=== PATIENT | female | born 1995 | race Caucasian/White ===

== ENCOUNTER 2025-04-04 04:59 | Emergency (ER) | payer BC, SELFPAY ==
[2025-04-04] VITALS (10 sets, daily range): BP systolic 134–164; BP diastolic 82–102; PULSE 51–84; RESP 16–26; TEMP 36.7–36.9; O2SAT 89–98; BMI 31.1
--- NOTE | 2025-04-04 04:58 | ECG_ITS ---
APPROVED REPORT Exam: Resting ECG HR:63 bpm ECG Measurements Heart Rate 63 AXES NM 132 P 49 QRSd 76 QRS 63 QT 389 T 42 QTc 397 Conclusion SINUS RHYTHM WITH SINUS ARRHYTHMIA NORMAL ECG Electronically signed by : MARIA ODLORES BECKMAN, 04/07/2025 19:57:35
--- NOTE | 2025-04-04 05:02 | CT_ITS ---
PROCEDURE INFORMATION: Exam: CTA Chest With Contrast Exam date and time: 04/04/2025 5:21 AM Age: 29 years old Clinical indication: Other: Labs; Additional info: Hemoptysis, cp, SOA TECHNIQUE: Imaging protocol: Computed tomographic angiography of the chest with contrast. Exam focused on the arteries. 3D rendering (Not supervised by radiologist): MIP and/or 3D reconstructed images were created by the technologist. Radiation optimization: All CT scans at this facility use at least one of these dose optimization techniques: automated exposure control; mA and/or kV adjustment per patient size (includes targeted exams where dose is matched to clinical indication); or iterative reconstruction. Contrast material: ISOVUE; Contrast volume: 70 ml; Contrast route: INTRAVENOUS (IV); COMPARISON: No relevant prior studies available. FINDINGS: Pulmonary arteries: Normal. No pulmonary emboli. Aorta: Unremarkable. No aortic aneurysm. No aortic dissection. Lungs: Patchy ground-glass interstitial disease is noted throughout the lungs with relative peripheral sparing. No dominant dense consolidation is identified. Pleural spaces: There are small bilateral pleural effusion with adjacent atelectasis. Heart: Unremarkable. No cardiomegaly. No pericardial effusion. Coronary arteries: There is no coronary artery calcification. Lymph nodes: Unremarkable. No enlarged lymph nodes. Diaphragm: There is a small hiatal hernia. 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 No acute fracture. Soft tissues: Unremarkable. Study is degraded by motion artifact. IMPRESSION: Somewhat limited study. No evidence for pulmonary embolism. Pneumonia. Small bilateral pleural effusions. Small hiatal hernia.
--- NOTE | 2025-04-04 05:08 | PC.NURSE ---
Resp called for VBG at [id number]
[2025-04-04 05:14] LABS: Lactate Venous 1.2 mmol/L (0.4-2.0); VBG Base Excess -4.8 mmol/L (-2.4-2.3); VBG HCO3 20.3 mmol/L (23-30); VBG Oxygen Saturation 55.7 % (50-70); VBG PH 7.38 mmol/L (7.31-7.41); VBG PO2 33.9 mmol/L (28-40); VBG Total CO2 21.4 mmol/L (23-27)
[2025-04-04 05:18] LABS: Basophils % 0.3 % (0.1-2.0); Eosinophils # 0.1 Kmm3 (0.0-0.4); Eosinophils % 1.1 % (0.1-12.0); Hematocrit 29.3 % (37.0-47.0); Immature Granulocytes # 0.05 10^3uL; Immature Granulocytes % 0.8 %; Lymphocytes # 1.4 K/mm3 (0.7-4.5); Lymphocytes % 21.6 % (10-50); Mean Corpuscular HGB Conc 30.7 g/dL (31.8-35.4); Mean Corpuscular Hemoglobin 24.5 pg (27.0-31.2); Mean Corpuscular Volume 79.6 fl (81-99); Mean Platelet Volume 10.3 fl (7.4-10.4); Monocytes # 0.5 K/mm3 (0.1-1.0); Monocytes % 8.1 % (1.7-9.3); Neutrophils # 4.4 K/mm3 (1.8-7.8); Neutrophils % 68.1 % (37.0-80.0); Nucleated Red Blood Cells # 0 10^3/uL; Nucleated Red Blood Cells % 0 %; Platelet Count 285 K/mm3 (142-424); Red Blood Count 3.68 M/mm3 (4.20-5.40); Red Cell Distribution Width 14.5 % (11.5-17.5); Red Cell Distribution Width-SD 42.2 fL; White Blood Count 6.4 K/mm3 (4.8-10.8)
--- NOTE | 2025-04-04 05:22 | ED_ITS ---
Discharge Plan Disposition Patient Disposition: Xfer Short-Term Hosp Chief Complaint: Shortness of Breath/Dyspnea Clinical Impressions Clinical Impression: hypertension, Elevated troponin, Pleural effusion, Hemoptysis, Ground glass opacity present on imaging of lung Stand Alone Forms Stand Alone Forms: Work/School Release Print Language Print Language: Sami Discharge ED Provider: Domingo Eric Adult HPI <Domingo Eric MD - Last Filed: 04/04/25 07:14> General Chief complaint: Shortness of Breath/Dyspnea Stated complaint: Shortness of breath Time Seen by Provider: 04/04/25 05:00 Mode of Arrival: Ambulatory Source of Information: Patient Description of Symptoms (Recalled from ER Triage Doc. by RN): Patient had c section on sunday; having shortness of breath, upper back pain, and coughing up blood. She is concerned that she has a blood clot. History of Present Illness HPI narrative: 29-year-old female, G1, P1 status post on Sunday at [facility], presents for chest pain back pain cough shortness of breath. She reports small volume hemoptysis, multiple episodes. She denies any other significant past medical history, no history of blood clots. Prior to tonight she was feeling well. She had a due to prolonged labor and development of chorio. She reports that the surgery went well. She denies any fever at home. Related Data Allergies Allergy/AdvReac Type Severity Reaction Status Date / Time No Known Allergies Allergy Verified 04/04/25 06:18 PFSH <Domingo Eric MD - Last Filed: 04/04/25 07:14> [facility] Disclaimer: The information contained in this section may have been updated after the patient was seen, as this information can be updated by other users. Social History (Updated 04/04/25 @ 07:14 by Domingo Eric MD) Smoking Status: Never smoker alcohol intake: never current occupational status: employed Travel in the last 8 weeks?: None <Domingo Eric MD - Last Filed: 04/04/25 07:14> ROS Obtained: Yes All systems reviewed & no additional complaints except as documented Physical Exam <Domingo Eric MD - Last Filed: 04/04/25 07:14> General General appearance: alert and anxious Head Head exam: atraumatic and normocephalic Eye Eye exam: Present normal appearance, PERRL and EOMI ENT ENT exam: Present normal oropharynx and normal external ear exam Neck Neck exam: Present normal inspection and full ROM Chest Chest inspection: Present normal inspection and symmetric chest wall rise; Absent tenderness Respiratory Respiratory exam: Present normal lung sounds bilaterally; Absent respiratory distress Cardiovascular Cardiovascular exam: Present regular rate and normal rhythm Abdominal Exam Abdominal exam: Present soft; Absent distention, tenderness or guarding Extremities Exam Extremities exam: Present normal inspection; Absent edema or joint swelling Back Exam Back exam: Present normal inspection; Absent tenderness Neurological Exam Neurological exam: Present alert and oriented X3; Absent motor sensory deficit Psychiatric Psychiatric exam: Present normal affect and normal mood Skin Skin exam: Present warm, dry and normal color Lymphatic Lymphatic Findings: no adenopathy Medical Decision Making <Domingo Eric MD - Last Filed: 04/04/25 07:14> Medical Records Medical records reviewed: Yes I reviewed the patient's medical records. Screening: Per USPSTF and CDC recommendations, given the prevalence of disease in our region, it is our hospital?s policy to screen for HIV and viral Hepatitis for all patients aged 18 and over and those with ongoing risk factors. Donnell Inquiry Pt receiving controlled substance: No Donnell was queried for this patient: No Vital Signs: 04/04/25 05:00 04/04/25 05:39 04/04/25 06:00 Temperature 98.0 F Temperature Source Oral Pulse Rate 59 L 59 L Pulse Rate [Right Radial] 84 Respiratory Rate 16 16 Blood Pressure 134/82 142/96 H Blood Pressure [Right Arm] 158/102 H Blood Pressure Mean [Right Arm] 120 Blood Pressure Source Automatic Cuff Blood Pressure Source [Right Arm] Automatic Cuff Blood Pressure Position Supine Blood Pressure Position [Right Arm] Supine 02 Sat by Pulse Oximetry 94 L 98 95 Oxygen Delivery Method Room Air Room Air 04/04/25 06:54 04/04/25 07:30 04/04/25 08:01 Temperature Temperature Source Pulse Rate 84 57 L 54 L Pulse Rate [Right Radial] Respiratory Rate 24 26 H Blood Pressure 142/96 H 164/92 H 136/86 Blood Pressure [Right Arm] Blood Pressure Mean [Right Arm] Blood Pressure Source Blood Pressure Source [Right Arm] Blood Pressure Position Blood Pressure Position [Right Arm] 02 Sat by Pulse Oximetry 98 92 L 93 L Oxygen Delivery Method Lab Data Lab results reviewed: Yes I reviewed the patient's lab results. Lab Results 04/04/25 05:01: WBC 6.4, RBC 3.68 L, Hgb 9.0 L, Hct 29.3 L, MCV 79.6 L, MCH 24.5 L, MCHC 30.7 L, RDW 14.5, Plt Count 285, MPV 10.3, Neut % (Auto) 68.1, Lymph % (Auto) 21.6, Swisher % (Auto) 8.1, Eos % (Auto) 1.1, Baso % (Auto) 0.3, Neut # (Auto) 4.4, Lymph # (Auto) 1.4, Swisher # (Auto) 0.5, Eos # (Auto) 0.1, Baso # (Auto) 0.0, PT 10.2, INR 0.91, APTT 30.8 H, Sodium 141, Potassium 3.4 L, C hloride 108 H, Carbon Dioxide 24, Anion Gap 12.4, BUN 9, Creatinine 0.60, Estimated Creat Clear 171, Estimated GFR 120, Est GFR ( Amer) 145, G lucose 72 L, Calcium 8.2 L, Total Bilirubin 0.7, AST 28, ALT 19, Alkaline Phosphatase 185 H, Total Creatine Kinase 101, Troponin I 0.04 H, NT-Pro-B Natriuret Pep 1220 H, Total Protein 6.8, Albumin 3.6, Globulin 3.2, Albumin/Globulin Ratio 1.1 04/04/25 05:09: VBG pH 7.38, VBG pCO2 35.0, VBG pO2 33.9, VBG HCO3 20.3 L, VBG Total CO2 21.4 L, VBG O2 Saturation 55.7, VBG Base Excess -4.8 L, VBG Lactic Acid 1.2 04/04/25 06:27: Urine Color Yellow, Urine Appearance Clear, Urine pH 6.0, Ur Specific [place] <= 1.005, Urine Protein Negative, Urine Glucose (UA) Negative, Urine Ketones Negative, Urine Blood 3+ A, Urine Nitrate Negative, Urine Bilirubin Negative, Urine Urobilinogen 0.2, Ur Leukocyte Esterase Negative, Urine RBC None, Urine WBC Occasional, Ur Squamous Epith Cells 5-10, Urine Bacteria Trace 04/04/25 05:01 04/04/25 05:01 Orders (Tests/Meds): ED MEDICATIONS Generic Name Dose Route Start Last Admin Trade Name Freq PRN Reason Stop Dose Admin Sodium Chloride 10 ml 04/04/25 07:22 04/04/25 07:23 Sodium Chloride 0.9% 10ml Syr (Rad Only) IV 05/04/25 07:21 10 ml NEEDED PRN Administration Maintain IV Site Discontinued Medications Generic Name Dose Route Start Last Admin Trade Name Freq PRN Reason Stop Dose Admin Iopamidol 70 ml 04/04/25 07:22 04/04/25 07:23 Iopamidol-370 (76%);100ml Bottle IV 04/04/25 07:23 70 ml ONCE ONE Administration Sodium Chloride 50 ml 04/04/25 07:22 04/04/25 07:23 0.9 % Sodium Chloride 50 Ml Vial IV 04/04/25 07:23 50 ml ONCE ONE Administration ORDERS Category Date Time Status CT angio chest PE protocol Stat Cat Scan 04/04/25 05:[address] angio chest PE protocol Stat Cat Scan 04/04/25 06:33 Completed POCUS Point of Care (ER Only) Stat Exams 04/04/25 06:01 Ordered BNP [NT Pro Brain Natriuretic Pep.] Stat Lab 04/04/25 05:01 Completed CBC w/Auto Diff [Complete Blood Count Auto Diff] Stat Lab 04/04/25 05:01 Completed CK [Creatine Kinase] Stat Lab 04/04/25 05:01 Completed CMP [Comprehensive Metabolic Panel] Stat Lab 04/04/25 05:01 Completed CRP [C-Reactive Protein] Stat Lab 04/04/25 05:01 Received LDH [Lactate Dehydrogenase] Stat Lab 04/04/25 05:01 Received Lactate Venous Stat Lab 04/04/25 05:09 Ordered PT INR [Prothrombin Time INR] Stat Lab 04/04/25 05:01 Completed PTT [Activated Partial Thrombo Time] Stat Lab 04/04/25 05:01 Completed Troponin I Q3H Lab 04/04/25 05:01 Completed Troponin I Q3H Lab 04/04/25 08:15 Ordered UA [Urinalysis and Microscopic] Stat Lab 04/04/25 06:27 Completed Uric Acid Stat Lab 04/04/25 05:01 Received VBG [Venous Blood Gas] Stat RT 04/04/25 05:09 Completed ECG Data Tracing #1: I reviewed this ECG and interpreted as documented below: Sinus rhythm with sinus arrhythmia, no concerning ST or T wave changes ECG initial impression date: 04/04/25 ECG initial impression time: 05:00 HEART Score History (anamnesis): Slightly suspicious ECG: Normal Age: <45 years Risk factors: No known risk factors Troponin: 1-3x normal limit HEART Score: 1 Medical Decision Narrative: 29-year-old female G1, P1 status post on Sunday, 5 days ago, presents with few hours of central back pain and shortness of breath with associated small volume hemoptysis. History was obtained via interactive discussion with patient, family. On arrival, patient is afebrile, hypertensive with systolics in the 140s, satting low 90s on room air, moving all extremities spontaneously. Full physical exam performed and significant for clear lungs bilaterally, no significant lower extremity pitting edema Differential includes but is not limited to PE, preeclampsia, cardiomyopathy, pneumonia, coagulopathy. Bedside ultrasound was performed and shows normal EPSS and normal TAPSE. Workup initiated including CBC CMP troponin BNP urinalysis VBG CT PE. On re-evaluation, patient [remains afebrile, HD stable.] Laboratory workup independently interpreted by me and significant for anemia with hemoglobin of 9, no evidence of thrombocytopenia, normal liver enzymes, normal renal function, elevated initial troponin at 0.04, elevated BNP at 1200. Mild hypokalemia and hypocalcemia. Urine protein negative. In total, labs are not consistent with preeclampsia. Imaging independently interpreted by me and significant for motion degraded study that cannot definitively assess for segmental/subsegmental PE. Does show bilateral groundglass opacities concerning for pneumonia. See radiology read for full review of final results. Given high clinical concern for PE and nondiagnostic CT, after discussion with radiologist and patient we will perform repeat CT angiogram for further assessment. At this time care handed off to oncoming physician. <Kristina Melo, DO - Last Filed: 04/04/25 08:35> Vital Signs: 04/04/25 05:00 04/04/25 05:39 04/04/25 06:00 Temperature 98.0 F Temperature Source Oral Pulse Rate 59 L 59 L Pulse Rate [Right Radial] 84 Respiratory Rate 16 16 Blood Pressure 134/82 142/96 H Blood Pressure [Right Arm] 158/102 H Blood Pressure Mean [Right Arm] 120 Blood Pressure Source Automatic Cuff Blood Pressure Source [Right Arm] Automatic Cuff Blood Pressure Position Supine Blood Pressure Position [Right Arm] Supine 02 Sat by Pulse Oximetry 94 L 98 95 Oxygen Delivery Method Room Air Room Air 04/04/25 06:54 04/04/25 07:30 04/04/25 08:01 Temperature Temperature Source Pulse Rate 84 57 L 54 L Pulse Rate [Right Radial] Respiratory Rate 24 26 H Blood Pressure 142/96 H 164/92 H 136/86 Blood Pressure [Right Arm] Blood Pressure Mean [Right Arm] Blood Pressure Source Blood Pressure Source [Right Arm] Blood Pressure Position Blood Pressure Position [Right Arm] 02 Sat by Pulse Oximetry 98 92 L 93 L Oxygen Delivery Method Lab Data Lab Results 04/04/25 05:01: WBC 6.4, RBC 3.68 L, Hgb 9.0 L, Hct 29.3 L, MCV 79.6 L, MCH 24.5 L, MCHC 30.7 L, RDW 14.5, Plt Count 285, MPV 10.3, Neut % (Auto) 68.1, Lymph % (Auto) 21.6, Swisher % (Auto) 8.1, Eos % (Auto) 1.1, Baso % (Auto) 0.3, Neut # (Auto) 4.4, Lymph # (Auto) 1.4, Swisher # (Auto) 0.5, Eos # (Auto) 0.1, Baso # (Auto) 0.0, PT 10.2, INR 0.91, APTT 30.8 H, Sodium 141, Potassium 3.4 L, C hloride 108 H, Carbon Dioxide 24, Anion Gap 12.4, BUN 9, Creatinine 0.60, Estimated Creat Clear 171, Estimated GFR 120, Est GFR ( Amer) 145, G lucose 72 L, Calcium 8.2 L, Total Bilirubin 0.7, AST 28, ALT 19, Alkaline Phosphatase 185 H, Total Creatine Kinase 101, Troponin I 0.04 H, NT-Pro-B Natriuret Pep 1220 H, Total Protein 6.8, Albumin 3.6, Globulin 3.2, Albumin/Globulin Ratio 1.1 04/04/25 05:09: VBG pH 7.38, VBG pCO2 35.0, VBG pO2 33.9, VBG HCO3 20.3 L, VBG Total CO2 21.4 L, VBG O2 Saturation 55.7, VBG Base Excess -4.8 L, VBG Lactic Acid 1.2 04/04/25 06:27: Urine Color Yellow, Urine Appearance Clear, Urine pH 6.0, Ur Specific [place] <= 1.005, Urine Protein Negative, Urine Glucose (UA) Negative, Urine Ketones Negative, Urine Blood 3+ A, Urine Nitrate Negative, Urine Bilirubin Negative, Urine Urobilinogen 0.2, Ur Leukocyte Esterase Negative, Urine RBC None, Urine WBC Occasional, Ur Squamous Epith Cells 5-10, Urine Bacteria Trace Orders (Tests/Meds): ED MEDICATIONS Generic Name Dose Route Start Last Admin Trade Name Freq PRN Reason Stop Dose Admin Sodium Chloride 10 ml 04/04/25 07:22 04/04/25 07:23 Sodium Chloride 0.9% 10ml Syr (Rad Only) IV 05/04/25 07:21 10 ml NEEDED PRN Administration Maintain IV Site Discontinued Medications Generic Name Dose Route Start Last Admin Trade Name Freq PRN Reason Stop Dose Admin Iopamidol 70 ml 04/04/25 07:22 04/04/25 07:23 Iopamidol-370 (76%);100ml Bottle IV 04/04/25 07:23 70 ml ONCE ONE Administration Sodium Chloride 50 ml 04/04/25 07:22 04/04/25 07:23 0.9 % Sodium Chloride 50 Ml Vial IV 04/04/25 07:23 50 ml ONCE ONE Administration ORDERS Category Date Time Status CT angio chest PE protocol Stat Cat Scan 04/04/25 05:[address] angio chest PE protocol Stat Cat Scan 04/04/25 06:33 Completed POCUS Point of Care (ER Only) Stat Exams 04/04/25 06:01 Ordered BNP [NT Pro Brain Natriuretic Pep.] Stat Lab 04/04/25 05:01 Completed CBC w/Auto Diff [Complete Blood Count Auto Diff] Stat Lab 04/04/25 05:01 Completed CK [Creatine Kinase] Stat Lab 04/04/25 05:01 Completed CMP [Comprehensive Metabolic Panel] Stat Lab 04/04/25 05:01 Completed CRP [C-Reactive Protein] Stat Lab 04/04/25 05:01 Received LDH [Lactate Dehydrogenase] Stat Lab 04/04/25 05:01 Received Lactate Venous Stat Lab 04/04/25 05:09 Ordered PT INR [Prothrombin Time INR] Stat Lab 04/04/25 05:01 Completed PTT [Activated Partial Thrombo Time] Stat Lab 04/04/25 05:01 Completed Troponin I Q3H Lab 04/04/25 05:01 Completed Troponin I Q3H Lab 04/04/25 08:15 Ordered UA [Urinalysis and Microscopic] Stat Lab 04/04/25 06:27 Completed Uric Acid Stat Lab 04/04/25 05:01 Received VBG [Venous Blood Gas] Stat RT 04/04/25 05:09 Completed HEART Score HEART Score: 1 Medical Decision Narrative: 29-year-old female G1, P1 status post on Sunday, 5 days ago, presents with few hours of central back pain and shortness of breath with associated small volume hemoptysis. History was obtained via interactive discussion with patient, family. On arrival, patient is afebrile, hypertensive with systolics in the 140s, satting low 90s on room air, moving all extremities spontaneously. Full physical exam performed and significant for clear lungs bilaterally, no significant lower extremity pitting edema Differential includes but is not limited to PE, preeclampsia, cardiomyopathy, pneumonia, coagulopathy. Bedside ultrasound was performed and shows normal EPSS and normal TAPSE. Workup initiated including CBC CMP troponin BNP urinalysis VBG CT PE. On re-evaluation, patient [remains afebrile, HD stable.] Laboratory workup independently interpreted by me and significant for anemia with hemoglobin of 9, no evidence of thrombocytopenia, normal liver enzymes, normal renal function, elevated initial troponin at 0.04, elevated BNP at 1200. Mild hypokalemia and hypocalcemia. Urine protein negative. In total, labs are not consistent with preeclampsia. Imaging independently interpreted by me and significant for motion degraded study that cannot definitively assess for segmental/subsegmental PE. Does show bilateral groundglass opacities concerning for pneumonia. See radiology read for full review of final results. Given high clinical concern for PE and nondiagnostic CT, after discussion with radiologist and patient we will perform repeat CT angiogram for further assessment. At this time care handed off to oncoming physician. DO Kameron: I assumed care of the patient at 7 AM at time of departure of the previous provider. On my assessment of the patient, she is lying in bed in no acute distress, O2 saturation is low 90s on room air. She is 90 to 91% with a heart rate in the 50s to 60s. Blood pressure has been fluctuating anywhere from 130s systolics to 160s. EKG obtained is reassuring. Labs demonstrated anemia, unclear what her discharge hemoglobin was at [facility] as we are not able to see her records. Hemoglobin is 9, no indication for transfusion at this time. Platelet count normal, liver enzymes normal. Kidney function normal with no proteinuria. She does have blood noted in her urine with no red blood cells, so I did send a CK which was within normal limits. Her troponin, however, is mildly elevated as well as her BNP. Initial provider had ordered a CT PE that was degraded with motion artifact, so he did order a repeat scan. I dependently interpreted repeat scan prior to radiology read and noted bilateral pleural effusions. I do not see any large PE but she does have multifocal groundglass opacities. They advised that this represents pneumonia, however it is unclear to me if this could be pneumonia versus pulmonary edema in this clinical setting. She has not had any fevers, white count is normal. She states that her only symptom was upper back pain until today when she woke up with hemoptysis acutely. I called and had an interactive discussion with Dr. Zamudio with OB who advised he recommends transfer to higher level of care at [facility] for assessment, with concern specifically for cardiomyopathy. Previous provider had performed bedside POCUS which was reassuring but course is a limited study. I called and had an interactive discussion with Dr. Can at [facility] who accept the patient for transfer there for higher level of care for further evaluation and management. I recommended EMS transport to the patient, however she adamantly refused stating that she would prefer just to have an outpatient appointment to go be seen there. I stressed to her the importance of this issue, as cardiomyopathy could lead to acute heart failure and even . She expressed understanding and agreement and states that she would like to go POV so she can stop by the house to grab things that she needs. We again discussed the importance of being monitored, but she still elects to go POV. Patient left in stable condition to go POV to [facility] for further evaluation and management. Procedures <Domingo Eric MD - Last Filed: 04/04/25 07:14> Risk/Benefits of Procedure(s) Were Explained: Yes Limited Ultrasound Indication:: Limited cardiac ultrasound Indication: Chest pain shortness of breath hemoptysis Views Obtained: PLAX, PSAX, Apical 4-chamber, Subxiphoid Findings: Normal LVEF function by EPSS. Normal RV function by TAPSE. No pericardial effusion Impression: Normal bedside echo Images were saved to permanent archive The study was technically adequate This study was performed by me, and I personally interpreted all images/videos. Critical Care <Domingo Eric MD - Last Filed: 04/04/25 07:14> Critical Care Time Critical Care Time: No <Kristina Melo DO - Last Filed: 04/04/25 08:35> Critical Care Time Critical Care Time: Yes Attestation: On 04/04/25, the high probability of a clinically significant, sudden or life threatening deterioration of the following system(s) required my full and direct attention, intervention and personal management. The time I documented below is in addition to time spent performing reported procedures but includes the following listed in this critical care notation. Total Time Total Critical Care Time: 45
[2025-04-04 05:28] LABS: Alanine Aminotransferase 19 U/L (12-78); Albumin Level 3.6 g/dl (3.5-5.0); Albumin/Globulin Ratio 1.1 (1.1-1.8); Alkaline Phosphatase 185 U/L (38-126); Anion Gap 12.4 mEq/L (5-15); Aspartate Amino Transferase 28 U/L (14-36); Bilirubin,Total 0.7 mg/dl (0.2-1.3); Blood Urea Nitrogen 9 mg/dl (7-17); Calcium 8.2 mg/dl (8.4-10.2); Carbon Dioxide 24 mmol/L (22.0-30.0); Chloride 108 mmol/L (98-107); Creatinine Clearance Estimated 171 mL/min (50-200); Estimated Glomerular Filt Rate 120 ml/min (>60); GFR (African American) 145 ML/MIN (>60); Globulin 3.2 g/dL (1.3-3.2); Glucose 72 mg/dl (74-100); Potassium 3.4 mmoL/L (3.5-5.1); Sodium 141 mmol/L (136-145); Total Protein,Serum 6.8 g/dl (6.3-8.2)
[2025-04-04 05:31] LABS: Activated Partial Thrombo Time 30.8 seconds (22.8-30.6); INR 0.91 (0.9-1.1); Prothrombin Time 10.2 seconds (10.1-12.5)
[2025-04-04 05:40] LABS: NT Pro Brain Natriuretic Pep. 1220 pg/mL (0-125); Troponin I 0.04 ng/ml (0.00-0.034)
[2025-04-04 06:31] LABS: Microscopic, Urine URINE MICROSCOPIC (MICROSCOPIC)
--- NOTE | 2025-04-04 06:33 | CT_ITS ---
PROCEDURE INFORMATION: Exam: CTA Chest With Contrast Exam date and time: 04/04/2025 7:05 AM Age: 29 years old Clinical indication: Shortness of breath; Additional info: Cp, hemoptysis, SOA TECHNIQUE: Imaging protocol: Computed tomographic angiography of the chest with contrast. Exam focused on the arteries. 3D rendering (Not supervised by radiologist): MIP and/or 3D reconstructed images were created by the technologist. Radiation optimization: All CT scans at this facility use at least one of these dose optimization techniques: automated exposure control; mA and/or kV adjustment per patient size (includes targeted exams where dose is matched to clinical indication); or iterative reconstruction. Contrast material: ISOVUE 370; Contrast volume: 70 ml; Contrast route: INTRAVENOUS (IV); COMPARISON: CT ANGIO CHEST PE PROTOCOL 04/04/2025 5:21 AM FINDINGS: Pulmonary arteries: No evidence of pulmonary embolus to the segmental level. Aorta: No aneurysm of the aorta. No dissection of the aorta. Lungs: Patchy bilateral ground-glass opacities may represent multifocal pneumonia.. Pleural spaces: Moderate bilateral pleural effusions. Heart: Unremarkable. No cardiomegaly. No pericardial effusion. Lymph nodes: Unremarkable. No enlarged lymph nodes. Bones/joints: Fusion of T10 through T12 vertebral bodies. No acute fracture. Soft tissues: Unremarkable. IMPRESSION: 1. No evidence of pulmonary embolus to the segmental level. 2. Patchy bilateral ground-glass opacities may represent multifocal pneumonia.. 3. Moderate bilateral pleural effusions.
[2025-04-04 06:39] LABS: Appearance,Urine CLEAR (Clear); Bilirubin,Urine Negative (Negative); Blood, Urine 3+ (Negative); Color,Urine YELLOW (Yellow); Glucose,Urine (UA) Negative (Negative); Ketones,Urine Negative (Negative); Leukocyte Esterase,Urine Negative (Negative); Nitrate,Urine Negative (Negative); Protein,Urine Negative (Negative); Specific Gravity, Urine <= 1.005 (1.005-1.030); Urobilinogen,Urine 0.2 EU/dl (0.2)
[2025-04-04 07:11] LABS: Bacteria,Urine Trace /lpf; WBC,Urine Occasional #/hpf (0-3)
[2025-04-04] MEDS: SODIUM CHLORIDE 0.9% 10ML SYR (RAD ONLY) 10 ML IV (07:23)
[2025-04-04] MEDS: IOPAMIDOL-370 (76%);100ML BOTTLE 70 ML IV (07:23)
[2025-04-04] MEDS: 0.9 % SODIUM CHLORIDE 50 ML VIAL IV (07:23)
[2025-04-04 07:26] LABS: Creatine Kinase 101 U/L (30-135)
--- NOTE | 2025-04-04 07:48 | PC.NURSE ---
calling wai at this time.
--- NOTE | 2025-04-04 08:10 | PC.NURSE ---
ALINA REINA on phone with [facility] for consult.
[2025-04-04 08:24] LABS: Troponin I 0.03 ng/ml (0.00-0.034)
[2025-04-04 08:25] LABS: Lactate Dehydrogenase 324 U/L (313-618); Uric Acid 3.8 mg/dl (2.5-6.2)
[2025-04-04 08:30] LABS: C-Reactive Protein 264.7 mg/L (0-4)
--- NOTE | 2025-04-04 08:37 | PC.NURSE ---
Called report to antepartum unit at [facility] and the nurse was concerned that the pt may need to go to another unit. Antepartum RN was contacting their Fundraising Director and would call us back for placement.
--- NOTE | 2025-04-04 08:46 | PC.NURSE ---
o/p with Hospitalist at [facility] at this time.
--- NOTE | 2025-04-04 08:50 | PC.NURSE ---
Spoke with Antepartum unit RN at [facility] and pt is going to be admitted to the Telemetry unit. RN states they would call back for room assignment.
--- NOTE | 2025-04-04 09:16 | PC.NURSE ---
I called and spoke with gabrielle at the transfer center. She states that due to the pt going POV it is considered a direct admit versus a transfer at their facility. I specifically asked if we needed to give report to the new floor due to previously giving it to her and antepartum. Gabrielle states they do not need report since it is a direct admit.
--- NOTE | 2025-04-04 09:21 | PC.NURSE ---
ER MD talked to pt about transfer to [facility]. pt refused to be transported via EMS and requested to go by private vehicle. pt was informed by ER MD on the risks and benefits of transportation mode. pt verbalizes understanding of teaching.
== END 2025-04-04 09:55 | disposition short-term general hospital (02) ==
PROVIDERS: Emergency Medicine; Emergency Provider Emergency Medicine
DX: R06.02 Shortness of breath (principal); R91.8 Other nonspecific abnormal finding of lung field; J90 Pleural effusion, not elsewhere classified; R04.2 Hemoptysis; O16.5 Unspecified maternal hypertension, complicating the puerperium
CPT/HCPCS: 71275; 80053; 81001; 82550; 82803; 83615; 83880; 84484; 84550; 85025; 85610; 85730; 86140; 93005; 99291; Q9967